=== PATIENT | male | born 1960 | race Two or more races ===

== ENCOUNTER → 2024-09-27 | Outpatient (CLI) | payer BC, SELFPAY ==
[2024-09-27 08:34] LABS: Prostate Specific Antigen 0.62 ng/mL (0-4.00)
[2024-09-27 08:35] LABS: Basophils % (Auto) 1 % (0-2.5); Eosinophils # (Auto) 0.3 Thou/mm3 (0.0-0.5); Eosinophils % (Auto) 5 % (0-10); Hematocrit 43.2 % (41.0-53.0); Hemoglobin 14.7 g/dL (13.5-16.0); Immature Granulocytes % (Auto) 0 % (0-0); Immature Granulocytes Auto 0.02 Thou/mm3 (0.00-0.00); Lymphocytes % (Auto) 37 % (10-50); Mean Corpuscular Hemoglobin 31.5 pg (25.0-35.0); Mean Corpuscular Volume 93 fL (80-100); Monocytes # (Auto) 0.4 Thou/mm3 (0.0-0.8); Monocytes % (Auto) 7 % (0-12); Neutrophils # (Auto) 2.8 Thou/mm3 (1.8-7.7); Neutrophils % (Auto) 51 % (37-80); Nucleated Red Blood Cell % 0 /100 WBC (0); Platelet Count 155 Thou/mm3 (140-440); RDW Standard Deviation 44.3 fL (35.1-43.9); Red Blood Count 4.67 Miln/mm3 (4.50-5.90); White Blood Count 5.6 Thou/mm3 (3.8-10.6)
[2024-09-27 08:39] LABS: Vitamin B12 1989 pg/mL (211-911); Vitamin D 25 Hydroxy Total 37.1 ng/mL (7.3-40.2)
[2024-09-27 08:58] LABS: Glucose Estimated Average 108 mg/dL (80-131); Hemoglobin A1C 5.4 % Hgb (4.8-6.0)
[2024-09-27 09:05] LABS: Alanine Aminotransferase 28 U/L (10-49); Albumin, Serum 4.6 gm/dL (3.4-4.8); Albumin/Globulin Ratio 2.3 (1.2-2.2); Alkaline Phosphatase 90 U/L (46-116); Anion Gap 9 (7-16); Aspartate Amino Transferase 20 U/L (0-34); BUN/Creatinine Ratio 18 Ratio (12-20); Bilirubin,Total 1.3 mg/dL (0.3-1.2); Blood Urea Nitrogen 16 mg/dL (9-23); Calcium 9.5 mg/dL (8.3-10.6); Calcium (Corrected) 9.5 mg/dL (8.5-10.1); Carbon Dioxide 28.1 mMol/L (20.0-31.0); Cardiac Risk Estimate 3.7 RATIO (4.0-6.7); Chloride 102 mMol/L (98-107); Cholesterol 110 mg/dL (132-200); Creatinine (Component) 0.9 mg/dL (0.6-1.3); Glucose 113 mg/dL (74-106); HDL Cholesterol 30 mg/dL (40-60); LDL Cholesterol,Calculated 57 mg/dL (0-130); Osmolality,Calculated 279 (275-295); Potassium 4.1 mMol/L (3.4-5.1); Sodium 139 mMol/L (136-145); Thyroid Stimulating Hormone 2.58 uIU/mL (0.55-4.78); Total Protein 6.6 gm/dL (5.7-8.2); Triglycerides 114 mg/dL (30-150); Uric Acid 5.8 mg/dL (3.7-9.2); eGFR > 60 See Note
== END | disposition home or self-care (01) ==
LOC: COPL 07:29
PROVIDERS: PCP Internal Medicine; Referring Provider Internal Medicine; Visit Provider Internal Medicine
DX: Z00.00 Encounter for general adult medical examination without abnormal findings (principal); I10 Essential (primary) hypertension; E78.5 Hyperlipidemia, unspecified
CPT/HCPCS: 36415; 80053; 80061; 81001; 82306; 82607; 83036; 84153; 84443; 84550; 85025

== ENCOUNTER → 2025-03-09 | Outpatient (CLI) | payer OTHER, SELFPAY ==
--- NOTE | 2025-03-09 16:30 | XR_ITS ---
Examination: MRI brain without intravenous contrast. Date and time of exam: March 09, 2025 1701 hours INDICATIONS: Dizziness episodes with blurred vision 1 year. Seizures in the right hand Technique: Multiple axial and sagittal images of the brain obtained. Siemens high-resolution 1.5 [employer] short bore scanners utilized. Sagittal sections, T1-weighted, TR 500, TE 14, are performed. Axial sections proton-density and T2-weighted have been obtained. Inversion recovery axial images, TR 9, 260, TE 111, TI 2500. Diffusion weighted images, axial sections, TR 4800, TE 128, B value 1000 Axial sections, ADC map, TR 4800, TE 128 Findings: Enlargement of the sella turcica is not present. The optic chiasm and infundibular are not remarkable. Prepontine and interpeduncular cisterns are not enlarged. There is no localized enlargement of the medulla or kalyn. Fourth ventricle and cerebellar tonsils appear normal in position. No subacute area of hemorrhage density is seen. Mass in the cerebellopontine angle region is not evident. Globes symmetrical. Orbital musculature including medial lateral rectus muscles do not exhibit abnormality. Diffusion-weighted images demonstrate no focus of restricted diffusion. Increased white matter signal moderate Mass effect upon the ventricular system is not identified. Impression: Negative for acute hemorrhage of mass effect or midline shift No acute infarct Moderate chronic microvascular white matter change Significant chronic frontal ethmoid sinusitis
== END | disposition home or self-care (01) ==
PROVIDERS: PCP Internal Medicine; Referring Provider Internal Medicine; Visit Provider Psychiatry & Neurology Neurology
DX: R90.82 White matter disease, unspecified (principal); J32.8 Other chronic sinusitis
CPT/HCPCS: 70551

== ENCOUNTER → 2025-03-13 | Outpatient (CLI) | payer OTHER, SELFPAY ==
--- NOTE | 2025-03-13 14:00 | XR_ITS ---
Examination: Ultrasound soft tissue mandible TECHNIQUE: Grayscale sonographic images soft tissue mandible Date and time: March 13, 2025 1412 hours INDICATIONS: Lump on the mandible on the right side one month FINDINGS: Multiple lymph nodes at the right mandible angle 10 x 6 mm, 7 x 5 mm, 7 x 3 mm, 6 x 4 mm IMPRESSION: Significant cervical lymphadenopathy at the area of concern Consider CT soft tissue neck post intravenous contrast follow-up
== END | disposition home or self-care (01) ==
PROVIDERS: PCP Internal Medicine; Referring Provider Internal Medicine; Visit Provider Internal Medicine
DX: R59.0 Localized enlarged lymph nodes (principal)
CPT/HCPCS: 76536

== ENCOUNTER → 2025-04-13 | Outpatient (CLI) | payer OTHER, SELFPAY ==
[2025-04-13 08:47] LABS: Albumin, Serum 4.3 gm/dL (3.4-4.8); Anion Gap 9 (7-16); BUN/Creatinine Ratio 18 Ratio (12-20); Blood Urea Nitrogen 16 mg/dL (9-23); Calcium 9.4 mg/dL (8.3-10.6); Calcium (Corrected) 9.4 mg/dL (8.5-10.1); Carbon Dioxide 25.9 mMol/L (20.0-31.0); Chloride 106 mMol/L (98-107); Creatinine (Component) 0.9 mg/dL (0.6-1.3); Glucose 113 mg/dL (74-106); Osmolality,Calculated 283 (275-295); Phosphorous 3.0 mg/dL (2.4-5.1); Potassium 4.0 mMol/L (3.4-5.1); Sodium 141 mMol/L (136-145); eGFR > 60 See Note
== END | disposition home or self-care (01) ==
LOC: COPL 07:20
PROVIDERS: PCP Internal Medicine; Referring Provider Internal Medicine; Visit Provider Internal Medicine
DX: I10 Essential (primary) hypertension (principal)
CPT/HCPCS: 36415; 80069

== ENCOUNTER → 2025-04-19 | Outpatient (CLI) | payer OTHER, SELFPAY ==
--- NOTE | 2025-04-19 11:00 | XR_ITS ---
Examination: CT soft tissue neck, with intravenous contrast. 2-D coronal reconstructions. 2-D sagittal reconstructions. Date and time of exam :April 19, 2025, 1040 hours INDICATIONS: Palpable swelling and pain in the right inferior neck beginning 6 months ago. CTDI: vol (mGy):14.8 DLP: (mGycm):420 Technique: 1.25 mm axial sections of the neck of the obtained. Coronal and sagittal reconstructions have been obtained. Intravenous contrast administered 50 cc [id number].. Low dose protocols were performed. One or more of the following dose reduction techniques were used; automated exposure control, adjustment of the mA and/or KV according to patient size, use of iterative reconstruction technique. Findings: Symmetrical optic globes Maxillary antra are clear Symmetrical nasopharynx oropharynx Symmetrical parotid and submandibular glands No pathologic carotid lymphadenopathy The larynx appears normal Thyroid lobes are not enlarged Normal epiglottis Advanced degenerative disc disease C4-C5, C6-C7 IMPRESSION: No soft tissue neck mass Consider repeat ultrasound soft tissue neck in 3 months
== END | disposition home or self-care (01) ==
LOC: CCTX 10:27
PROVIDERS: Referring Provider Internal Medicine; Visit Provider Internal Medicine
DX: R59.0 Localized enlarged lymph nodes (principal)
CPT/HCPCS: 70491; A4649; Q9967

== ENCOUNTER → 2025-07-04 | Outpatient (CLI) | payer OTHER, SELFPAY ==
[2025-07-04 09:41] LABS: Alanine Aminotransferase 23 U/L (10-49); Albumin, Serum 4.6 gm/dL (3.4-4.8); Albumin/Globulin Ratio 2.6 (1.2-2.2); Alkaline Phosphatase 82 U/L (46-116); Anion Gap 10 (7-16); Aspartate Amino Transferase 26 U/L (0-34); BUN/Creatinine Ratio 14 Ratio (12-20); Bilirubin,Total 1.3 mg/dL (0.3-1.2); Blood Urea Nitrogen 10 mg/dL (9-23); Calcium 8.9 mg/dL (8.3-10.6); Calcium (Corrected) 8.9 mg/dL (8.5-10.1); Carbon Dioxide 26.3 mMol/L (20.0-31.0); Cardiac Risk Estimate 2.8 RATIO (4.0-6.7); Chloride 105 mMol/L (98-107); Cholesterol 98 mg/dL (132-200); Creatinine (Component) 0.7 mg/dL (0.6-1.3); Globulin 1.8 gm/dL (2.3-3.5); Glucose 120 mg/dL (74-106); HDL Cholesterol 35 mg/dL (40-60); LDL Cholesterol,Calculated 47 mg/dL (0-130); Osmolality,Calculated 281 (275-295); Potassium 4.4 mMol/L (3.4-5.1); Sodium 141 mMol/L (136-145); Total Protein 6.4 gm/dL (5.7-8.2); Triglycerides 82 mg/dL (30-150); eGFR > 60 See Note
== END | disposition home or self-care (01) ==
LOC: COPL 07:55
PROVIDERS: PCP Internal Medicine; Referring Provider Internal Medicine; Visit Provider Internal Medicine
DX: I10 Essential (primary) hypertension (principal); E78.5 Hyperlipidemia, unspecified
CPT/HCPCS: 36415; 80053; 80061